=== PATIENT | male | born 1995 | race Hispanic/Latino ===

== ENCOUNTER 2022-09-08 19:56 | Emergency (ER) | payer SELFPAY ==
[~2022-09-08] VITALS: Ht 157.5 cm; Wt 85.0 kg
[2022-09-08 20:07] VITALS: BP 177/117
[2022-09-08] MEDS ORDERED: AMOXICILLIN500 MG PO ×2 (20:19→20:35)
[2022-09-08] MEDS ORDERED: ULTRAM50 MG PO ×2 (20:19→20:35)
[2022-09-08 20:38] VITALS: BP 177/117
== END 2022-09-08 20:44 | disposition home or self-care (01) | DRG 159 ==
LOC: ED 19:56
DX: K04.7 Periapical abscess without sinus (principal)